=== PATIENT | male | born 1970 | race Caucasian/White ===

== ENCOUNTER 2022-09-18 07:46 | Day surgery (SDC) | payer OTHER ==
[~2022-09-18] VITALS: Ht 190.5 cm; Wt 99.4 kg
[2022-09-18] MEDS ORDERED: IBUP400 (08:01)
[2022-09-18] MEDS ORDERED: ENAL10 (08:01)
[2022-09-18] MEDS ORDERED: ERGO400 (08:01)
[2022-09-18] MEDS ORDERED: SILD25T (08:01)
--- NOTE | 2022-09-18 08:24 | NUR ---
09/18/22 0824 Jeane Sherman PT TOOK SUTAB FOR BOWEL PREP [facility]. [facility]ULTS WERE VERY CLEAR, LIGHT AMRENDARIZ LIQUID LIKE CHICKEN BROTH PER PT.
== END 2022-09-18 10:28 | disposition home or self-care (01) ==
LOC: ORSCSDS 07:46
PROVIDERS: Surgery
PROC: 0DBN8ZX Excision of Sigmoid Colon, Via Natural or Artificial Opening Endoscopic, Diagnostic (ICD-10-PCS; principal; 2022-09-18 09:00)
DX: Z12.11 Encounter for screening for malignant neoplasm of colon (principal); K63.5 Polyp of colon; K57.30 Diverticulosis of large intestine without perforation or abscess without bleeding; E78.1 Pure hyperglyceridemia; F43.10 Post-traumatic stress disorder, unspecified; I10 Essential (primary) hypertension; Z79.899 Other long term (current) drug therapy
CPT/HCPCS: 88305; J2405; J2704; J7120

== ENCOUNTER 2025-06-07 00:59 | Emergency (ER) | payer OTHER ==
[~2025-06-07] VITALS: Ht 190.5 cm; Wt 102.1 kg
[~2025-06-07 00:59] MED LIST: ENAL10; ERGO400; IBUP400; SILD25T
[2025-06-07] MEDS ORDERED: Fluticasone 0.05% Nasal Spray ONE (02:40)
[2025-06-07] MEDS ORDERED: Tranexamic Acid 100 ML IV ONE (03:05)
[2025-06-07] MEDS ORDERED: NS 1,000 ML IV SCH (03:05)
[2025-06-07 03:23] LABS: BASOPHILS ABSOLUTE AUTO 0.06 K/mm3 (0.00-0.23); BASOPHILS PERCENT AUTO 1 % (0-2); EOSINOPHILS ABSOLUTE AUTO 0.26 K/mm3 (0.00-0.68); EOSINOPHILS PERCENT AUTO 3 % (0-6); Hematocrit 40.5 % (37.0-53.0); Hemoglobin 14.2 g/dL (13.5-17.5); IMMATURE GRAN ABSOLUTE AUTO 0.03 K/mm3 (0.00-0.10); IMMATURE GRAN PERCENT AUTO 0 % (0-1); LYMPHOCYTES ABSOLUTE AUTO 3.03 K/mm3 (0.84-5.20); LYMPHOCYTES PERCENT AUTO 30 % (21-46); MONOCYTES ABSOLUTE AUTO 1.13 K/mm3 (0.16-1.47); MONOCYTES PERCENT AUTO 11 % (4-13); Mean Corpuscular HGB Conc 35.1 g/dL (31.5-36.5); Mean Corpuscular Volume 90 fL (80-100); NEUTROPHILS ABSOLUTE AUTO 5.73 K/mm3 (1.96-9.15); NEUTROPHILS PERCENT AUTO 56 % (41-73); NRBC ABSOLUTE 0.00 K/mm3 (0.00-0.02); NRBC Auto 0.0 /100 WBC (0.0-0.2); Platelet Count 259 K/mm3 (150-400); RDW Coefficient Variation 12.1 % (11.7-14.2); RDW Standard Deviation 39.8 fL (35.1-46.3)
[2025-06-07 03:42] LABS: Alanine Aminotransfer (ALT/SGP 85.0 U/L (12-78); Albumin, Blood 3.6 g/dL (3.4-5.0); Albumin/Globulin Ratio 1.1 (0.8-1.8); Anion Gap 10.0 mmol/L (3-11); Aspartate Aminotrans (AST/SGOT 37.0 U/L (12-37); Bilirubin, Total 0.5 mg/dL (0.1-1.0); Blood Urea Nitrogen 24.0 mg/dL (8-24); CO2, Blood 19.0 mmol/L (21-32); Calcium, Blood 8.3 mg/dL (8.5-10.1); Chloride, Blood 115.0 mmol/L (98-108); Creatinine, Blood 0.94 mg/dL (0.60-1.20); Globulin, Blood 3.2 g/dL (2.2-4.0); Glucose, Blood 120.0 mg/dL (70-99); Potassium, Blood 4.2 mmol/L (3.5-5.5); Sodium, Blood 140.0 mmol/L (136-145); Total Protein, Blood 6.8 g/dL (6.4-8.2)
== END 2025-06-07 05:09 | disposition home or self-care (01) ==
LOC: ER 00:59
PROVIDERS: Emergency Medicine
DX: R04.0 Epistaxis (principal); E86.0 Dehydration; Z59.89 Other problems related to housing and economic circumstances; Z88.2 Allergy status to sulfonamides; Z88.8 Allergy status to other drugs, medicaments and biological substances; Z79.899 Other long term (current) drug therapy
CPT/HCPCS: 80053; 85025; 99283; A9270; J7030